=== PATIENT | female | born 1930 | race African-American/Black ===

== ENCOUNTER 2017-05-17 12:58 | Day surgery (SDC) | payer MEDICARE, OTHER ==
[~2017-05-17 12:58] MED LIST: HYDROmorphone 2 MG/ML VIAL IV; LIDOCAINE 1% 20 ML VIAL.; LIDOCAINE 1% PF 2 ML VIAL. ID; MORPHINE SULFATE 2 MG/ML DISP.SYRIN. IV; ONDANSETRON PF 4 MG/2 ML VIAL. IV; PROCHLORPERAZINE 10 MG/2 ML VIAL. IV; fentaNYL PF VIAL 100 MCG/2 ML VIAL IV
[2017-05-17] MEDS ORDERED: LIDOCAINE 2% PF Vial for OR 5 ML VIAL. (13:13)
[2017-05-17] MEDS ORDERED: DEXAMETHASONE SOD PHOS 20 MG/5 ML VIAL. (13:13)
[2017-05-17] MEDS ORDERED: PROPOFOL 20 ML IV (13:13)
[2017-05-17] MEDS ORDERED: fentaNYL PF VIAL 100 MCG/2 ML VIAL (13:14)
[2017-05-17] MEDS ORDERED: ONDANSETRON PF 4 MG/2 ML VIAL. (13:14)
[2017-05-17] MEDS: IV RINGERS,LACTATED 1000ML 1,000 ML IV (14:25)
[2017-05-17] MEDS: CLINDAMYCIN 900MG PREMIX 50 ML IV (14:35)
[2017-05-17] MEDS: HEPARIN SODIUM 5,000 UNIT in IV RINGERS,LACTATED 500ML 500 ML IRR (14:51)
[2017-05-17] MEDS ORDERED: SEVOFLURANE 31 TO 60 MINUTES. IH (15:19)
[2017-05-17] MEDS: HYDROcodone/APAP 5/325MG 1 TAB TABLET PO (16:10)
== END 2017-05-17 17:11 | disposition home or self-care (01) ==
LOC: SURG 12:58
DX: C20 Malignant neoplasm of rectum (principal); I11.0 Hypertensive heart disease with heart failure; I50.9 Heart failure, unspecified; F41.9 Anxiety disorder, unspecified; F17.200 Nicotine dependence, unspecified, uncomplicated; D64.9 Anemia, unspecified; M19.90 Unspecified osteoarthritis, unspecified site; Z87.442 Personal history of urinary calculi; Z98.890 Other specified postprocedural states; Z90.710 Acquired absence of both cervix and uterus; Z87.39 Personal history of other diseases of the musculoskeletal system and connective tissue; Z88.1 Allergy status to other antibiotic agents; Z88.0 Allergy status to penicillin; Z91.018 Allergy to other foods; Z98.41 Cataract extraction status, right eye; Z98.42 Cataract extraction status, left eye
CPT/HCPCS: 36556; 36561; 71045; 77001; C1788; J1100; J1644; J2405; J2704; J3010; J3490; J7120

== ENCOUNTER 2017-08-23 07:08 | Inpatient (IN) | payer MEDICARE, OTHER ==
[~2017-08-23 07:08] MED LIST changes: -LIDOCAINE 1% 20 ML VIAL.; -MORPHINE SULFATE 2 MG/ML DISP.SYRIN. IV; +MORPHINE SULFATE 4 MG/ML DISP.SYRIN. IV
[2017-08-23] MEDS: IV RINGERS,LACTATED 1000ML 1,000 ML IV (07:55)
[2017-08-23] MEDS ORDERED: fentaNYL PF VIAL 250 MCG/5 ML VIAL (08:20)
[2017-08-23] MEDS ORDERED: MIDAZOLAM HCL/PF 2 MG/2 ML VIAL. (08:20)
[2017-08-23] MEDS ORDERED: ROCURONIUM 100 MG/10 ML VIAL. (08:20)
[2017-08-23] MEDS: IOHEXOL 300 MG/ML 100ML VIAL. (09:07)
[2017-08-23 09:25] LABS: HEMATOCRIT 33.2 % (36.0-47.0); HEMOGLOBIN 10.6 g/dL (12.0-15.5); PLATELET COUNT 168 x10^3/uL (140-400); WHITE BLOOD COUNT 2.1 x10^3/uL (4.0-11.0)
[2017-08-23] MEDS ORDERED: PROPOFOL 20 ML IV (09:29)
[2017-08-23] MEDS ORDERED: DEXAMETHASONE SOD PHOS 20 MG/5 ML VIAL. (09:29)
[2017-08-23] MEDS ORDERED: ONDANSETRON PF 4 MG/2 ML VIAL. (09:29)
[2017-08-23] MEDS ORDERED: ePHEDrine PF IN SALINE 50 MG/5 ML DISP.SYRIN IV (09:48)
[2017-08-23] MEDS ORDERED: PHENYLEPHRINE 10 MG/ML VIAL. (11:12)
[2017-08-23] MEDS ORDERED: ALBUMIN HUMAN 5% 500 ML IV (11:50)
[2017-08-23] MEDS ORDERED: NEOSTIGMINE METHYLSULFATE 5 MG/5 ML SYRINGE. (12:50)
[2017-08-23] MEDS ORDERED: GLYCOPYRROLATE 1 MG/5 ML VIAL. (12:50)
[2017-08-23] MEDS ORDERED: SEVOFLURANE > 120 MINUTES. IH (13:15)
[2017-08-23] MEDS: POTASSIUM CL 20MEQ D5-0.45NACL 1,000 ML IV ×2 (13:22→20:42)
[2017-08-23] MEDS ORDERED: 0.9 % SODIUM CHLORIDE 10 ML DISP.SYRIN. IV (13:30)
[2017-08-24] MEDS: POTASSIUM CL 20MEQ D5-0.45NACL 1,000 ML IV ×2 (09:22→22:05)
[2017-08-24 09:27] LABS: BASO % 0 % (0-3); EOS % 0 % (0-3); HEMATOCRIT 33.1 % (36.0-47.0); HEMOGLOBIN 10.9 g/dL (12.0-15.5); LYMPH # 0.3 x10^3/uL (1.0-4.8); LYMPH % 3 % (24-48); MEAN CORPUSCULAR HEMOGLOBIN 29 pg (25-35); MEAN CORPUSCULAR HGB CONC 33 g/dL (31-37); MEAN CORPUSCULAR VOLUME 88 fL (79-100); MONO # 0.5 x10^3/uL (0.0-1.1); MONO % 6 % (0-9); NEUT # 7.3 x10^3uL (1.8-7.7); NEUT % 90 % (31-73); PLATELET COUNT 155 x10^3/uL (140-400); RED BLOOD COUNT 3.77 x10^6/uL (3.50-5.40); RED CELL DISTRIBUTION WIDTH 17.2 % (11.5-14.5); WHITE BLOOD COUNT 8.1 x10^3/uL (4.0-11.0)
[2017-08-24 09:30] LABS: ADD MAN DIFF? YES
[2017-08-24 09:37] LABS: ALBUMIN 2.8 g/dL (3.4-5.0); ALBUMIN/GLOBULIN RATIO 0.8 (1.0-1.7); ALK PHOS 58 U/L (46-116); ALT (SGPT) 27 U/L (14-59); ANION GAP 6 (6-14); AST (SGOT) 27 U/L (15-37); BLOOD UREA NITROGEN 16 mg/dL (7-20); BUN/CREATININE RATIO 16 (6-20); CALCIUM 8.7 mg/dL (8.5-10.1); CARBON DIOXIDE 28 mmol/L (21-32); CHLORIDE 103 mmol/L (98-107); GFR 63.8; GLUCOSE 162 mg/dL (70-99); SODIUM 137 mmol/L (136-145); TOTAL BILIRUBIN 0.6 mg/dL (0.2-1.0); TOTAL PROTEIN 6.2 g/dL (6.4-8.2)
[2017-08-24] MEDS: ALBUTEROL SULFATE 2.5 MG/3 ML NEBU. NEB ×4 (09:41→20:11)
[2017-08-24] MEDS: ENOXAPARIN 40 MG/0.4 ML SYRINGE. SQ (09:53)
[2017-08-24 10:38] LABS: % BANDS 16 % (0-9); % LYMPHS 4 % (24-48); % MONOS 3 % (0-10); % SEGS 77 % (35-66); ANISOCYTOSIS SLIGHT
[2017-08-24 10:39] LABS: PLT ESTIMATE ADEQUATE (ADEQUATE)
[2017-08-25] MEDS: ALBUTEROL INH ×2 (03:21→16:06)
[2017-08-25] MEDS: IPRATRPIUM/ALBUTEROL 0.5/2.5MG 3 ML NEBU. NEB ×3 (07:24→19:54)
[2017-08-25] MEDS: ENOXAPARIN 30 MG/0.3 ML SYRINGE. SQ (08:50)
[2017-08-25] MEDS: BUDESONIDE 0.5 MG/2 ML NEBU. NEB ×2 (10:43→19:54)
[2017-08-25] MEDS: POTASSIUM CL 20MEQ D5-0.45NACL 1,000 ML IV ×2 (11:25→14:44)
[2017-08-25] MEDS ORDERED: BUDESONIDE 0.5 MG/2 ML NEBU. NEB (13:00)
[2017-08-25] MEDS: ONDANSETRON PF 4 MG/2 ML VIAL. IV (16:06)
[2017-08-26] MEDS: POTASSIUM CL 20MEQ D5-0.45NACL 1,000 ML IV ×2 (04:13→17:45)
[2017-08-26] MEDS: ALBUTEROL INH (06:25)
[2017-08-26] MEDS: BUDESONIDE 0.5 MG/2 ML NEBU. NEB ×2 (06:49→20:14)
[2017-08-26] MEDS: IPRATRPIUM/ALBUTEROL 0.5/2.5MG 3 ML NEBU. NEB ×2 (06:49→20:14)
[2017-08-26] MEDS: ENOXAPARIN 30 MG/0.3 ML SYRINGE. SQ (08:35)
[2017-08-27] MEDS: ALBUTEROL INH ×3 (02:16→15:32)
[2017-08-27] MEDS: IPRATRPIUM/ALBUTEROL 0.5/2.5MG 3 ML NEBU. NEB ×2 (08:16→19:35)
[2017-08-27] MEDS: BUDESONIDE 0.5 MG/2 ML NEBU. NEB ×2 (08:17→19:35)
[2017-08-27] MEDS: ENOXAPARIN 30 MG/0.3 ML SYRINGE. SQ (08:55)
[2017-08-27] MEDS: POTASSIUM CL 20MEQ D5-0.45NACL 1,000 ML IV (15:15)
[2017-08-28] MEDS: POTASSIUM CL 20MEQ D5-0.45NACL 1,000 ML IV ×2 (04:35→22:04)
[2017-08-28] MEDS: BUDESONIDE 0.5 MG/2 ML NEBU. NEB ×2 (07:13→20:50)
[2017-08-28] MEDS: IPRATRPIUM/ALBUTEROL 0.5/2.5MG 3 ML NEBU. NEB ×2 (07:13→20:50)
[2017-08-28] MEDS: ENOXAPARIN 40 MG/0.4 ML SYRINGE. SQ (08:20)
[2017-08-28 11:21] LABS: ANION GAP 7 (6-14); BLOOD UREA NITROGEN 13 mg/dL (7-20); CALCIUM 8.1 mg/dL (8.5-10.1); CARBON DIOXIDE 28 mmol/L (21-32); CHLORIDE 99 mmol/L (98-107); CREATININE 0.6 mg/dL (0.6-1.0); GLUCOSE 119 mg/dL (70-99); POTASSIUM 5.2 mmol/L (3.5-5.1); SODIUM 134 mmol/L (136-145)
[2017-08-28] MEDS: oxyCODONE/APAP 5/325 1 TAB TABLET PO ×2 (11:48→17:54)
[2017-08-28 12:53] LABS: ADD MAN DIFF? NO
[2017-08-28 12:58] LABS: BASO % 1 % (0-3); EOS # 0.1 x10^3/uL (0.0-0.7); EOS % 1 % (0-3); LYMPH # 0.4 x10^3/uL (1.0-4.8); LYMPH % 7 % (24-48); MEAN CORPUSCULAR HEMOGLOBIN 30 pg (25-35); MEAN CORPUSCULAR HGB CONC 34 g/dL (31-37); MEAN CORPUSCULAR VOLUME 88 fL (79-100); MONO # 0.6 x10^3/uL (0.0-1.1); MONO % 12 % (0-9); NEUT # 4.1 x10^3uL (1.8-7.7); NEUT % 80 % (31-73); PLATELET COUNT 173 x10^3/uL (140-400); RED CELL DISTRIBUTION WIDTH 16.1 % (11.5-14.5); WHITE BLOOD COUNT 5.2 x10^3/uL (4.0-11.0)
[2017-08-28 13:09] LABS: HEMATOCRIT 15.9 % (36.0-47.0)
[2017-08-28 13:10] LABS: HEMOGLOBIN 5.4 g/dL (12.0-15.5)
[2017-08-28] MEDS ORDERED: IRON SUCROSE COMPLEX 200 MG in IV NORMAL SALINE 100ML 100 ML IV (13:30)
[2017-08-28 14:38] LABS: % SAT IRON 14 % (15-34); IRON,SERUM 27 ug/dL (50-170)
[2017-08-28 14:53] LABS: RETIC COUNT 1.8 % (0.5-2.5)
[2017-08-28 15:01] LABS: FERRITIN 130 ng/mL (8-252)
[2017-08-28] MEDS: IRON SUCROSE COMPLEX 200 MG in TOTAL VOLUME SYRINGE 10 ML IVP (15:07)
[2017-08-28 15:25] LABS: VITAMIN-B12 396 pg/mL (247-911)
[2017-08-28 15:26] LABS: FOLATE 7.34 ng/ml (3.2-20.0)
[2017-08-28] MEDS: ALBUTEROL INH (17:48)
[2017-08-28] MEDS: LIDOCAINE 2% JELLY 6ML IN APPLICATOR. MM (17:55)
[2017-08-28] MEDS: CYANOCOBALAMIN (VITAMIN B-12) 1,000 MCG/ML VIAL IM (17:55)
[2017-08-28] MEDS ORDERED: DARBEPOETIN ALFA 200 MCG/0.4 ML SQ (21:00)
[2017-08-28] MEDS ORDERED: DISP SYRIN SQ (21:00)
[2017-08-28] MEDS: DARBEPOETIN ALFA 100 MCG/0.5 ML DISP.SYRIN. SQ (22:00)
[2017-08-29 06:33] LABS: ADD MAN DIFF? NO
[2017-08-29 06:38] LABS: BASO % 0 % (0-3); EOS # 0.1 x10^3/uL (0.0-0.7); EOS % 2 % (0-3); LYMPH # 0.4 x10^3/uL (1.0-4.8); LYMPH % 8 % (24-48); MEAN CORPUSCULAR HEMOGLOBIN 30 pg (25-35); MEAN CORPUSCULAR HGB CONC 34 g/dL (31-37); MEAN CORPUSCULAR VOLUME 89 fL (79-100); MONO # 0.7 x10^3/uL (0.0-1.1); MONO % 14 % (0-9); NEUT # 3.9 x10^3uL (1.8-7.7); NEUT % 76 % (31-73); PLATELET COUNT 173 x10^3/uL (140-400); RED BLOOD COUNT 1.62 x10^6/uL (3.50-5.40); RED CELL DISTRIBUTION WIDTH 16.3 % (11.5-14.5); WHITE BLOOD COUNT 5.2 x10^3/uL (4.0-11.0)
[2017-08-29 06:47] LABS: HEMATOCRIT 14.3 % (36.0-47.0); HEMOGLOBIN 4.9 g/dL (12.0-15.5)
[2017-08-29 07:17] LABS: ANION GAP 6 (6-14); BLOOD UREA NITROGEN 13 mg/dL (7-20); CALCIUM 7.8 mg/dL (8.5-10.1); CARBON DIOXIDE 29 mmol/L (21-32); CHLORIDE 101 mmol/L (98-107); CREATININE 0.8 mg/dL (0.6-1.0); GFR 82.5; GLUCOSE 101 mg/dL (70-99); POTASSIUM 4.3 mmol/L (3.5-5.1); SODIUM 136 mmol/L (136-145)
[2017-08-29] MEDS: IPRATRPIUM/ALBUTEROL 0.5/2.5MG 3 ML NEBU. NEB ×2 (07:55→20:39)
[2017-08-29] MEDS: BUDESONIDE 0.5 MG/2 ML NEBU. NEB ×2 (07:55→20:39)
[2017-08-29] MEDS: oxyCODONE/APAP 5/325 1 TAB TABLET PO ×2 (12:43→20:55)
[2017-08-29] MEDS: POTASSIUM CL 20MEQ D5-0.45NACL 1,000 ML IV (12:45)
[2017-08-29 16:20] LABS: C DIFF BY PCR Negative (Negative)
[2017-08-30 06:09] LABS: ADD MAN DIFF? NO
[2017-08-30 06:15] LABS: BASO % 0 % (0-3); EOS # 0.1 x10^3/uL (0.0-0.7); EOS % 2 % (0-3); LYMPH # 0.4 x10^3/uL (1.0-4.8); LYMPH % 6 % (24-48); MEAN CORPUSCULAR HEMOGLOBIN 31 pg (25-35); MEAN CORPUSCULAR HGB CONC 34 g/dL (31-37); MEAN CORPUSCULAR VOLUME 90 fL (79-100); MONO # 0.9 x10^3/uL (0.0-1.1); MONO % 13 % (0-9); NEUT # 5.7 x10^3uL (1.8-7.7); NEUT % 79 % (31-73); PLATELET COUNT 214 x10^3/uL (140-400); RED BLOOD COUNT 1.81 x10^6/uL (3.50-5.40); RED CELL DISTRIBUTION WIDTH 16.8 % (11.5-14.5); WHITE BLOOD COUNT 7.2 x10^3/uL (4.0-11.0)
[2017-08-30] MEDS: IPRATRPIUM/ALBUTEROL 0.5/2.5MG 3 ML NEBU. NEB ×2 (07:34→19:13)
[2017-08-30] MEDS: BUDESONIDE 0.5 MG/2 ML NEBU. NEB ×2 (07:34→19:13)
[2017-08-30] MEDS: DISP SYRIN SQ (09:26)
[2017-08-30] MEDS: IRON SUCROSE COMPLEX 500 MG in IV NORMAL SALINE 250ML 250 ML IV (09:26)
[2017-08-30] MEDS: DARBEPOETIN ALFA 200 MCG/0.4 ML SQ (09:26)
[2017-08-30] MEDS: oxyCODONE/APAP 5/325 1 TAB TABLET PO (12:13)
[2017-08-30] MEDS: ACETAMINOPHEN 325 MG TABLET. PO ×2 (12:58→13:11)
[2017-08-30] MEDS: POTASSIUM CL 20MEQ D5-0.45NACL 1,000 ML IV (13:49)
[2017-08-30] MEDS: diazePAM 5 MG TABLET PO (18:21)
[2017-08-31] MEDS: oxyCODONE/APAP 5/325 1 TAB TABLET PO ×2 (01:37→12:47)
[2017-08-31 06:37] LABS: ADD MAN DIFF? NO
[2017-08-31 06:50] LABS: BASO % 0 % (0-3); EOS # 0.2 x10^3/uL (0.0-0.7); EOS % 2 % (0-3); LYMPH # 0.5 x10^3/uL (1.0-4.8); LYMPH % 7 % (24-48); MEAN CORPUSCULAR HEMOGLOBIN 30 pg (25-35); MEAN CORPUSCULAR HGB CONC 33 g/dL (31-37); MEAN CORPUSCULAR VOLUME 91 fL (79-100); MONO % 14 % (0-9); NEUT # 5.5 x10^3uL (1.8-7.7); NEUT % 77 % (31-73); PLATELET COUNT 237 x10^3/uL (140-400); RED CELL DISTRIBUTION WIDTH 16.7 % (11.5-14.5); WHITE BLOOD COUNT 7.2 x10^3/uL (4.0-11.0)
[2017-08-31 07:04] LABS: HEMATOCRIT 13.7 % (36.0-47.0); HEMOGLOBIN 4.5 g/dL (12.0-15.5)
[2017-08-31] MEDS: BUDESONIDE 0.5 MG/2 ML NEBU. NEB ×2 (07:44→19:33)
[2017-08-31] MEDS: IPRATRPIUM/ALBUTEROL 0.5/2.5MG 3 ML NEBU. NEB ×2 (07:44→19:33)
[2017-08-31] MEDS: diazePAM 5 MG TABLET PO (08:37)
[2017-08-31] MEDS: POTASSIUM CL 20MEQ D5-0.45NACL 1,000 ML IV (08:40)
[2017-08-31] MEDS: ACETAMINOPHEN 325 MG TABLET. PO (20:23)
[2017-09-01] MEDS: POTASSIUM CL 20MEQ D5-0.45NACL 1,000 ML IV ×2 (01:23→20:23)
[2017-09-01 03:57] LABS: BILIRUBIN,URINE NEGATIVE (NEG); CLARITY,URINE CLEAR; COLOR,URINE YELLOW; GLUCOSE,URINE NEGATIVE (NEG); NITRITE,URINE POSITIVE (NEG); PROTEIN,URINE 30 mg/dL (NEG-TRACE); UROBILINOGEN,URINE 0.2 mg/dL (0.2 mg/dL)
[2017-09-01 04:11] LABS: BACTERIA,URINE MANY /HPF (0-FEW); SQUAMOUS EPITHELIAL CELL,UR FEW /LPF; WBC,URINE TNTC /HPF (0-4)
[2017-09-01 06:34] LABS: ADD MAN DIFF? NO
[2017-09-01 06:50] LABS: BASO % 0 % (0-3); EOS # 0.1 x10^3/uL (0.0-0.7); EOS % 2 % (0-3); LYMPH # 0.4 x10^3/uL (1.0-4.8); LYMPH % 6 % (24-48); MEAN CORPUSCULAR HEMOGLOBIN 31 pg (25-35); MEAN CORPUSCULAR HGB CONC 34 g/dL (31-37); MEAN CORPUSCULAR VOLUME 92 fL (79-100); MONO # 0.9 x10^3/uL (0.0-1.1); MONO % 13 % (0-9); NEUT # 5.4 x10^3uL (1.8-7.7); NEUT % 79 % (31-73); PLATELET COUNT 271 x10^3/uL (140-400); RED BLOOD COUNT 1.55 x10^6/uL (3.50-5.40); RED CELL DISTRIBUTION WIDTH 16.7 % (11.5-14.5); WHITE BLOOD COUNT 6.9 x10^3/uL (4.0-11.0)
[2017-09-01 07:05] LABS: HEMATOCRIT 14.3 % (36.0-47.0); HEMOGLOBIN 4.9 g/dL (12.0-15.5)
[2017-09-01] MEDS: BUDESONIDE 0.5 MG/2 ML NEBU. NEB ×2 (08:21→19:49)
[2017-09-01] MEDS: IPRATRPIUM/ALBUTEROL 0.5/2.5MG 3 ML NEBU. NEB ×2 (08:21→19:49)
[2017-09-01] MEDS: SIMETHICONE 80 MG TAB.CHEW PO ×2 (09:17→20:22)
[2017-09-01] MEDS: diazePAM 5 MG TABLET PO (09:17)
[2017-09-01] MEDS: cefTRIAXone IV Push 1 GM VIAL. IVP (09:17)
[2017-09-01] MEDS: ACETAMINOPHEN 325 MG TABLET. PO ×2 (09:18→20:22)
[2017-09-01 11:42] LABS: HEMOGLOBIN 5.5 g/dL (12.0-15.5)
[2017-09-01 11:43] LABS: HEMATOCRIT 16.2 % (36.0-47.0)
[2017-09-02 06:12] LABS: ADD MAN DIFF? NO
[2017-09-02 06:38] LABS: BASO % 1 % (0-3); EOS # 0.1 x10^3/uL (0.0-0.7); EOS % 2 % (0-3); LYMPH # 0.4 x10^3/uL (1.0-4.8); LYMPH % 6 % (24-48); MEAN CORPUSCULAR HEMOGLOBIN 32 pg (25-35); MEAN CORPUSCULAR HGB CONC 34 g/dL (31-37); MEAN CORPUSCULAR VOLUME 94 fL (79-100); MONO # 0.8 x10^3/uL (0.0-1.1); MONO % 12 % (0-9); NEUT # 5.5 x10^3uL (1.8-7.7); NEUT % 80 % (31-73); PLATELET COUNT 296 x10^3/uL (140-400); RED BLOOD COUNT 1.59 x10^6/uL (3.50-5.40); RED CELL DISTRIBUTION WIDTH 17.3 % (11.5-14.5); WHITE BLOOD COUNT 6.9 x10^3/uL (4.0-11.0)
[2017-09-02] MEDS: IPRATRPIUM/ALBUTEROL 0.5/2.5MG 3 ML NEBU. NEB ×2 (07:39→20:13)
[2017-09-02] MEDS: BUDESONIDE 0.5 MG/2 ML NEBU. NEB ×2 (07:40→20:13)
[2017-09-02] MEDS: cefTRIAXone IV Push 1 GM VIAL. IVP (08:45)
[2017-09-02] MEDS: ACETAMINOPHEN 325 MG TABLET. PO (08:45)
[2017-09-02] MEDS: diazePAM 5 MG TABLET PO (08:45)
[2017-09-02] MEDS: POTASSIUM CL 20MEQ D5-0.45NACL 1,000 ML IV (14:36)
[2017-09-02] MEDS: oxyCODONE/APAP 5/325 1 TAB TABLET PO (20:18)
[2017-09-03] MEDS: IPRATRPIUM/ALBUTEROL 0.5/2.5MG 3 ML NEBU. NEB ×2 (07:12→20:09)
[2017-09-03] MEDS: BUDESONIDE 0.5 MG/2 ML NEBU. NEB ×2 (07:12→20:09)
[2017-09-03] MEDS: diazePAM 5 MG TABLET PO (08:39)
[2017-09-03] MEDS: cefTRIAXone IV Push 1 GM VIAL. IVP (08:39)
[2017-09-03] MEDS: oxyCODONE/APAP 5/325 1 TAB TABLET PO (09:55)
[2017-09-03] MEDS: POTASSIUM CL 20MEQ D5-0.45NACL 1,000 ML IV (09:56)
[2017-09-03] MEDS: ALTEPLASE 2 MG VIAL INT CAT (10:34)
[2017-09-03] MEDS: ACETAMINOPHEN 325 MG TABLET. PO (17:17)
[2017-09-03] MEDS: NITROFURANTOIN MONOHYD/M-CRYST 100 MG CAPSULE. PO (20:58)
[2017-09-04 05:12] LABS: ADD MAN DIFF? NO
[2017-09-04 05:24] LABS: BASO # 0.1 x10^3/uL (0.0-0.2); BASO % 1 % (0-3); EOS # 0.1 x10^3/uL (0.0-0.7); EOS % 2 % (0-3); LYMPH # 0.4 x10^3/uL (1.0-4.8); LYMPH % 5 % (24-48); MEAN CORPUSCULAR HEMOGLOBIN 31 pg (25-35); MEAN CORPUSCULAR HGB CONC 33 g/dL (31-37); MEAN CORPUSCULAR VOLUME 95 fL (79-100); MONO # 0.6 x10^3/uL (0.0-1.1); MONO % 8 % (0-9); NEUT # 6.5 x10^3uL (1.8-7.7); NEUT % 84 % (31-73); PLATELET COUNT 351 x10^3/uL (140-400); RED BLOOD COUNT 1.89 x10^6/uL (3.50-5.40); RED CELL DISTRIBUTION WIDTH 20.7 % (11.5-14.5); WHITE BLOOD COUNT 7.8 x10^3/uL (4.0-11.0)
[2017-09-04 05:52] LABS: HEMOGLOBIN 5.9 g/dL (12.0-15.5)
[2017-09-04] MEDS: POTASSIUM CL 20MEQ D5-0.45NACL 1,000 ML IV (06:33)
[2017-09-04] MEDS: BUDESONIDE 0.5 MG/2 ML NEBU. NEB ×2 (07:08→18:24)
[2017-09-04] MEDS: IPRATRPIUM/ALBUTEROL 0.5/2.5MG 3 ML NEBU. NEB ×2 (07:09→18:24)
[2017-09-04] MEDS: NITROFURANTOIN MONOHYD/M-CRYST 100 MG CAPSULE. PO ×2 (09:16→21:18)
[2017-09-04] MEDS: diazePAM 5 MG TABLET PO (09:16)
[2017-09-04] MEDS: oxyCODONE/APAP 5/325 1 TAB TABLET PO (13:59)
[2017-09-04] MEDS: DARBEPOETIN ALFA 100 MCG/0.5 ML DISP.SYRIN. SQ (21:18)
[2017-09-05] MEDS: POTASSIUM CL 20MEQ D5-0.45NACL 1,000 ML IV (03:26)
[2017-09-05 05:41] LABS: ADD MAN DIFF? NO
[2017-09-05 05:54] LABS: BASO % 1 % (0-3); EOS # 0.1 x10^3/uL (0.0-0.7); EOS % 2 % (0-3); LYMPH # 0.4 x10^3/uL (1.0-4.8); LYMPH % 6 % (24-48); MEAN CORPUSCULAR HEMOGLOBIN 31 pg (25-35); MEAN CORPUSCULAR HGB CONC 33 g/dL (31-37); MEAN CORPUSCULAR VOLUME 94 fL (79-100); MONO # 0.6 x10^3/uL (0.0-1.1); MONO % 9 % (0-9); NEUT # 5.8 x10^3uL (1.8-7.7); NEUT % 83 % (31-73); PLATELET COUNT 346 x10^3/uL (140-400); RED BLOOD COUNT 1.82 x10^6/uL (3.50-5.40); RED CELL DISTRIBUTION WIDTH 20.6 % (11.5-14.5)
[2017-09-05 06:05] LABS: HEMATOCRIT 17.1 % (36.0-47.0); HEMOGLOBIN 5.6 g/dL (12.0-15.5)
[2017-09-05] MEDS: BUDESONIDE 0.5 MG/2 ML NEBU. NEB (07:12)
[2017-09-05] MEDS: IPRATRPIUM/ALBUTEROL 0.5/2.5MG 3 ML NEBU. NEB (07:12)
[2017-09-05] MEDS: DARBEPOETIN ALFA 200 MCG/0.4 ML SQ (09:38)
[2017-09-05] MEDS: IRON SUCROSE COMPLEX 500 MG in IV NORMAL SALINE 250ML 250 ML IV (09:38)
[2017-09-05] MEDS: DISP SYRIN SQ (09:38)
[2017-09-05] MEDS: NITROFURANTOIN MONOHYD/M-CRYST 100 MG CAPSULE. PO (09:38)
[2017-09-05] MEDS: oxyCODONE/APAP 5/325 1 TAB TABLET PO ×3 (09:39→18:04)
[2017-09-05] MEDS: diazePAM 5 MG TABLET PO (09:39)
[2017-09-05] MEDS: CEPHALEXIN 250 MG CAPSULE. PO (11:10)
[2017-09-05] MEDS: HEPARIN PF 500 UNIT/5 ML DISP.SYRIN. IV (15:01)
== END 2017-09-05 18:16 | disposition home health service (06) | DRG 329 ==
LOC: OPSVCIP 07:08 → 4 NORTH 15:22
PROC: 0DBN0ZZ Excision of Sigmoid Colon, Open Approach (ICD-10-PCS; principal; 2017-08-23 08:30)
DX: C20 Malignant neoplasm of rectum (principal); E43 Unspecified severe protein-calorie malnutrition; N13.30 Unspecified hydronephrosis; I11.0 Hypertensive heart disease with heart failure; I50.9 Heart failure, unspecified; B95.7 Other staphylococcus as the cause of diseases classified elsewhere; E11.9 Type 2 diabetes mellitus without complications; N39.0 Urinary tract infection, site not specified; D64.9 Anemia, unspecified; I25.10 Atherosclerotic heart disease of native coronary artery without angina pectoris; J44.9 Chronic obstructive pulmonary disease, unspecified; Z68.23 Body mass index [BMI] 23.0-23.9, adult; R32 Unspecified urinary incontinence; Z80.0 Family history of malignant neoplasm of digestive organs; Z80.3 Family history of malignant neoplasm of breast; Z85.048 Personal history of other malignant neoplasm of rectum, rectosigmoid junction, and anus; Z85.3 Personal history of malignant neoplasm of breast; Z86.73 Personal history of transient ischemic attack (TIA), and cerebral infarction without residual deficits; Z87.891 Personal history of nicotine dependence; Z87.442 Personal history of urinary calculi; Z90.49 Acquired absence of other specified parts of digestive tract; Z90.710 Acquired absence of both cervix and uterus; Z92.21 Personal history of antineoplastic chemotherapy; Z92.3 Personal history of irradiation; Z88.0 Allergy status to penicillin; Z88.8 Allergy status to other drugs, medicaments and biological substances
CPT/HCPCS: 36415; 71045; 76000; 80048; 80053; 81001; 82607; 82728; 82746; 83540; 83550; 85007; 85025; 85027; 85045; 87040; 87086; 87186; 87324; 88307; 94640; 94760; 97110-GP; 97116-GP; 97162-GP; 97166-GO; 97530-GO; 97535-GO; A7015; C1769; C2617; J0690; J0696; J0881; J1100; J1650; J1756; J2250; J2405; J2704; J2710; J2997; J3010; J3420; J3490; J7050; J7120; J7613; J7620; J7626; P9045; Q9967